=== PATIENT | female | born 1990 | race Hispanic/Latino ===

== ENCOUNTER 2016-05-22 23:09 | Inpatient (IN) | payer BC ==
[2016-05-22] MEDS ORDERED: Dextrose 50% SYRINGE Inj (50 ml) ONE (23:15)
[2016-05-22] MEDS ORDERED: Sodium Chloride 0.9% 1,000 ML IV ONE (23:21)
[2016-05-22] MEDS ORDERED: Naloxone 0.4 mg/ml Inj (Adult) IVP STA (23:21)
[2016-05-22] MEDS ORDERED: Dextrose 50% SYRINGE Inj (50 ml) IVP STA (23:22)
[2016-05-22] MEDS ORDERED: Sodium Chloride 0.9% 1,000 ML ONE (23:32)
[2016-05-22 23:37] LABS: BASO # 0.1 K/uL (0.0-0.2); BASO % 0.5 % (0.0-2.0); EOS # 0.1 K/uL (0.0-0.7); EOS % 0.7 % (0.0-4.0); HEMATOCRIT 38.5 % (34.0-47.0); LYMPH # 4.5 K/uL (1.0-4.3); MEAN CELL VOLUME 83.9 fL (81.0-99.0); MEAN CORPUSCULAR HGB CONC 33.4 g/dL (33.0-37.0); MONO # 0.8 K/uL (0.0-0.8); MONO % 7.5 % (0.0-10.0); NRBC % 0.1 % (0.0-2.0); WHITE BLOOD COUNT 10.3 K/uL (4.8-10.8)
[2016-05-22 23:49] LABS: CHLORIDE 98 mmol/L (98-107)
[2016-05-22 23:50] LABS: SODIUM 138 mmol/L (132-148)
[2016-05-22 23:50] LABS: RBC URINE < 1 /hpf (0-3); URINE BILIRUBIN NEGATIVE (NEGATIVE); URINE BLOOD NEGATIVE (NEGATIVE); URINE COLOR Colorless (YELLOW); URINE GLUCOSE (UA) 3+ mg/dL (Normal); URINE KETONE NEGATIVE (NEGATIVE); URINE LEUKOCYTE ESTERASE NEG Leu/uL (Negative); URINE PROTEIN NEGATIVE (NEGATIVE); URINE UROBILINOGEN NORMAL mg/dL (0.2-1.0); WBC URINE < 1 /hpf (0-5)
[2016-05-22 23:52] LABS: ALB/GLOB RATIO 1.3 (1.0-2.1); ALKALINE PHOSPHATASE 47 U/L (38-126); ALT/SGPT 26 U/L (9-52); AST/SGOT 28 U/L (14-36); BILIRUBIN,TOTAL 0.6 mg/dL (0.2-1.3); BLOOD UREA NITROGEN 5 mg/dL (7-17); CARBON DIOXIDE 24 mmol/L (22-30); GFR AFRICAN-AMERICAN > 60; GLUCOSE,RANDOM 87 mg/dL (65-105); TOTAL PROTEIN 7.6 g/dL (6.3-8.3)
[2016-05-22 23:53] LABS: ALCOHOL SERUM < 10 mg/dl (0-10); CALCIUM 8.9 mg/dl (8.6-10.4); MAGNESIUM 2.2 mg/dL (1.6-2.3)
[2016-05-23 00:52] LABS: ABG ALLEN TEST POS; ABG MECHANICAL RATE 14; ATERIAL BLOOD GAS PEEP 5; DRAW SITE RRAD
--- NOTE | 2016-05-23 01:04 | C.PDOC ---
History Of Present Illness Boyfriend called 911 because she took "a bunch of her pills". EMS found pt to be drowsy. Pt became more lethargic on the way to the hospital. Time Seen by Provider: 05/22/16 23:17 History Per: EMS History/Exam Limitations: clinical condition Onset/Duration Of Symptoms: Unknown (tonight) Current Symptoms Are (Timing): Still Present Suicide/Self Injury Attempted (Context): Ingestion Ingestion Of Substance: Xanax, Pristiq, Seroquel, Respirdal. Severity: Severe Additional History Per: Prior Records, Boyfriend Past Medical History Reviewed: Historical Data, Nursing Documentation, Vital Signs Vital Signs: Last Vital Signs Temp 97.5 F L 05/22/16 23:13 Pulse 70 05/23/16 01:00 Resp 16 05/23/16 01:00 BP 113/78 05/23/16 01:00 Pulse Ox 100 05/23/16 01:00 - Medical History PMH: Bipolar Disorder Family History: States: Unknown Family Hx - Social History Hx Alcohol Use: Yes Hx Substance Use: No Review Of Systems Review Of Systems: ROS cannot be obtained secondary to pt's inabilty to answer questions. Physical Exam - Physical Exam Appears: Other (slighly responsive only to deep painful stimuli) Skin: Normal Color, Warm, Dry Head: Atraumatic Eye(s): bilateral: PERRL Neck: Normal ROM, No Midline Cervical Tenderness, No Step Off Deformity, Supple Chest: Symmetrical Cardiovascular: Rhythm Regular Respiratory: Normal Breath Sounds, No Accessory Muscle Use, Other (Shallow breathing) Gastrointestinal/Abdominal: Soft, No Distention Extremity: Normal ROM, No Deformity Neurological/Psych: No Response To Commands Pain Response: Withdraws With Pain (mild) ED Course And Treatment - Laboratory Results Result Diagrams: 05/22/16 23:31 05/22/16 23:31 Lab Interpretation: No Acute Changes Urine POC: Negative ECG: Interpreted By Me, Viewed By Me ECG Rhythm: Sinus Rhythm, Nonspecific Changes ECG Interpretation: Abnormal Interpretation Of ECG: Prolonged QTc at 483ms. Rate From EC O2 Sat by Pulse Oximetry: 100 (On NRB) Pulse Ox Interpretation: Other - Radiology CXR: Interpreted by Me, Viewed By Me CXR Interpretation: Yes: Other (ETT and OGT in place) Progress Note: Pt was d/w Lucretia at [facility]. They recommend supportive care and repeating the EKG in 4 hours. - Physician Consult Information Physician Contacted: Venancio Blackman Outcome Of Conversation: He accepted pt to ICU. Endotracheal Intubation - Endotracheal Intubation Intubated With ETT Size: 7 (7.5) Blade Type Used: Curved Indication: Airway Protection Intubated: Orally Pre-Intubation Airway Assessment: Ventilated And Oxygenated Paralyzed With: Succinylcholine Post-Intubation Assessment: ETT Secured AT (cm): (21), Breath Sounds Equal Bilat , Placement Confirmed Via CXR, Color Change W/End Tidal CO2 Detector, Oxygen Saturation: (99) Progress - Interventions Interventions:: Observation, Intravenous fluid, Oxygen - Medications Administered Intravenous: Other (D50. Narcan. ) - Data Reviewed Data Reviewed: Lab, Diagnostic imaging, EKG, Old records - Patient Status Patient status: Unchanged, Critical - Critical Care Citical Care: Excluding Proc Time Critical Care Time: 60 minutes - Continuity of Care Discussed patient case with:: Family-HIPPA compliant, ED Nurse, On-call PMD-pt unassigned Discussed pt. case with php consultant/specialty: Pulmonary/Crit. Care - Patient Plan Patient Plan: Admission, ICU Disposition Discussed With DrNikole: Hitesh Cavazos Comment: He accepted pt on hospitalist service. Doctor Will See Patient In The: Hospital Counseled Patient/Family Regarding: Studies Performed, Diagnosis - Disposition Disposition: HOSPITALIZED Disposition Time: 01:10 Condition: CRITICAL - Clinical Impression Clinical Impression: Suicide attempt by substance overdose
--- NOTE | 2016-05-23 01:57 | CP.PCM.HP ---
History of Present Illness - History of Present Illness History of Present Illness: CC: AMS/Overdose HPI: Patient is a 26 year old female, with PMHx of Bipolar Disorder ( diagnosed 2009), presents to the [facility] ED via EMS for OD. Boyfriend of pt at bedside reports pt stated she was "not feeling well" and went to bed early. Boyfriend went into bedroom to check on pt 1/2 hour later and noted patient was lethargic and slurring her words. He also believed her to be be breathing "irregularly, and slowly." This caused him to call 911, and have pt brought to ED. Boyfriend also reports that patient had called her psychiatrist, Dr. Eitan Hawkins ([place]), and he directed her to "take her medication." Pt was unable to be maintain her airway, and was intubated on presentation. Family at bedside produced pills bottles for: Xanax, Pristiq, Seroquel, and Risperdal, but also state pt has recently been taking [place] as well. Family was unsure exactly her current regimen. Family reports history of questionable overdose on Zoloft in 2009 while pt was away at [facility] in [place]. Mother of pt states her daughter told her at the time she wanted to get better faster and took "all her Zoloft at once." It was during this admission in 2009, she was diagnosed with bipolar disorder. Family reports pt has been performing well at her job, but pt admitted to them stress over recent "long hours and moving in with her boyfriend." ROS unobtainable due to pt intubation. 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 Eitan Hawkins, [place] POA: Adopted parents (Copy available in chart) Present on Admission - Present on Admission Any Indicators Present on Admission: No Review of Systems - Review of Systems Systems not reviewed;Unavailable: Altered Mental Status, Intubated Review of Systems: ROS unobtainable due to pts condition Past Patient History - Past Social History Smoking Status: Never Smoked - GASTROINTESTINAL Hx Gastrointestinal Disorders: Yes Other/Comment: Hirschsprung disease - PSYCHIATRIC Hx Bipolar Disorder: Yes Hx Substance Use: No - SURGICAL HISTORY Hx Surgeries: Yes Other/Comment: GI surgery at infancy age. - ANESTHESIA Hx Anesthesia: Yes Meds Allergies/Adverse Reactions: Allergies Allergy/AdvReac Type Severity Reaction Status Date / Time Cephalosporins Allergy Verified 05/23/16 01:43 Penicillins Allergy Verified 05/23/16 01:43 Physical Exam - Constitutional Appears: In Acute Distress Additional comments: Intubated on mechanical ventilation - Head Exam Head Exam: ATRAUMATIC, NORMAL INSPECTION, NORMOCEPHALIC - Eye Exam Eye Exam: EOMI, PERRL. absent: Conjunctival injection, Scleral icterus - ENT Exam ENT Exam: Mucous Membranes Moist - Neck Exam Neck exam: Positive for: Normal Inspection - Respiratory Exam Respiratory Exam: Clear to Auscultation Bilateral. absent: Accessory Muscle Use Additional comments: Pt on mechanical respiration - Cardiovascular Exam Cardiovascular Exam: REGULAR RHYTHM, +S1, +S2 - GI/Abdominal Exam GI & Abdominal Exam: Normal Bowel Sounds, Soft. absent: Distended - Extremities Exam Extremities exam: Positive for: normal inspection. Negative for: pedal edema - Neurological Exam Neurological exam: Altered - Skin Skin Exam: Normal Color, Warm Results - Vital Signs Recent Vital Signs: Last Vital Signs Temp 97.5 F L 05/22/16 23:13 Pulse 70 05/23/16 01:00 Resp 16 05/23/16 01:00 BP 113/78 05/23/16 01:00 Pulse Ox 100 05/23/16 01:11 - Labs Result Diagrams: 05/22/16 23:31 05/22/16 23:31 Labs: Laboratory Results - last 24 hr 05/22/16 05/22/16 05/22/16 23:15 23:31 23:44 WBC 10.3 RBC 4.59 Hgb 12.9 Hct 38.5 MCV 83.9 MCH 28.0 MCHC 33.4 RDW 13.0 Plt Count 234 MPV 7.0 L Neut % (Auto) 47.3 L Lymph % (Auto) 44.0 H [place] % (Auto) 7.5 Eos % (Auto) 0.7 Baso % (Auto) 0.5 Neut # 4.9 Lymph # 4.5 H [place] # 0.8 Eos # 0.1 Baso # 0.1 Puncture Site pCO2 pO2 HCO3 ABG pH ABG Total CO2 ABG O2 Saturation ABG Base Excess Shorty Test ABG Potassium A-a O2 Difference Respiratory Index Glucose Lactate Mechanical Rate FiO2 Tidal Volume PEEP Sodium 138 Potassium 4.0 Chloride 98 Carbon Dioxide 24 Anion Gap 20 BUN 5 L Creatinine 0.7 Est GFR ( Amer) > 60 Est GFR (Non-Af Amer) > 60 POC Glucose (mg/dL) 75 Random Glucose 87 Calcium 8.9 Magnesium 2.2 Total Bilirubin 0.6 AST 28 ALT 26 Alkaline Phosphatase 47 Total Protein 7.6 Albumin 4.4 Globulin 3.3 Albumin/Globulin Ratio 1.3 Arterial Blood Potassium Urine Color Colorless Urine Clarity Clear Urine pH 8.0 Ur Specific [place] 1.000 L Urine Protein Negative Urine Glucose (UA) 3+ H Urine Ketones Negative Urine Blood Negative Urine Nitrate Negative Urine Bilirubin Negative Urine Urobilinogen Normal Ur Leukocyte Esterase Neg Urine WBC (Auto) < 1 Urine RBC (Auto) < 1 Urine HCG, Qual Negative Salicylates 3.9 Urine Opiates Screen Negative Urine Methadone Screen Negative Acetaminophen < 10.0 L Ur Barbiturates Screen Negative Ur Phencyclidine Scrn Negative Ur Amphetamines Screen Negative U Benzodiazepines Scrn Positive U Oth Cocaine Metabols Negative U Cannabinoids Screen Negative Alcohol, Quantitative < 10 05/23/16 00:49 WBC RBC Hgb Hct MCV MCH MCHC RDW Plt Count MPV Neut % (Auto) Lymph % (Auto) [place] % (Auto) Eos % (Auto) Baso % (Auto) Neut # Lymph # [place] # Eos # Baso # Puncture Site Rrad pCO2 35 pO2 276 H HCO3 26.1 ABG pH 7.46 H ABG Total CO2 26.0 ABG O2 Saturation 98.9 H ABG Base Excess 1.4 Shorty Test Pos ABG Potassium 3.3 L A-a O2 Difference 108.0 Respiratory Index 0.4 Glucose 87 Lactate 0.7 Mechanical Rate 14 FiO2 60.0 Tidal Volume 500 PEEP 5 Sodium 141.0 Potassium Chloride 113.0 H Carbon Dioxide Anion Gap BUN Creatinine Est GFR ( Amer) Est GFR (Non-Af Amer) POC Glucose (mg/dL) Random Glucose Calcium Magnesium Total Bilirubin AST ALT Alkaline Phosphatase Total Protein Albumin Globulin Albumin/Globulin Ratio Arterial Blood Potassium 3.3 L Urine Color Urine Clarity Urine pH Ur Specific [place] Urine Protein Urine Glucose (UA) Urine Ketones Urine Blood Urine Nitrate Urine Bilirubin Urine Urobilinogen Ur Leukocyte Esterase Urine WBC (Auto) Urine RBC (Auto) Urine HCG, Qual Salicylates Urine Opiates Screen Urine Methadone Screen Acetaminophen Ur Barbiturates Screen Ur Phencyclidine Scrn Ur Amphetamines Screen U Benzodiazepines Scrn U Oth Cocaine Metabols U Cannabinoids Screen Alcohol, Quantitative Assessment & Plan - Assessment and Plan (Free Text) Assessment: Substance Overdose Admit to ICU, all mgmt per ICU team Unknown motivation, but believed suicide attempt One prior questionable attempt in 2009 (Zoloft, 6 day inpatient stay in [place]) Took combination of Five possible medications: [place], Risperdal, Seroquel, Xanax, Pristiq ER Naloxone 1.2 mg IV given in ED D50 50ml IV given in ED Flumazenil 0.2 mg IV - caused slight, temporary increase in alertness IV hydration: D5/.5 NS w. 20 meq KCL @ 100 cc/hr EKG: NSR, elongated QTc f/u [place] level Consider Psych consult when pt extubated Acute respiratory failure Pt intubated in ED CXR: Hazy opacity at the lung bases, likely atelectasis. ETT with tip just above tracheal bifurcation. (see full report) Electrolyte abnormalities K+: 3.3 on ABG - D5/.5 NS w. 20 meq KCL @ 100 cc/hr Monitor electrolytes on AM labs Prophylaxis SCDs Protonix 40 mg IVP Daily Heparin 5000u SC Q8H D5/.5 NS w. 20 meq KCL @ 100 cc/hr
--- NOTE | 2016-05-23 02:17 | CP.CCUPN ---
CCU Subjective - Physician Review Subjective (Free Text): 05/23/16 02:36 The Patient was seen and examined at the bedside, Medical records reviewed, all clinical/lab/hemodynamic/radiographic data were reviewed and management issues were discussed and formulated, 26 Y/O F with PMHx of Bipolar Disorder (diagnosed 2009 when she was hospitalized when she was away for [facility] in [place]), who was found by her Boyfriend minimally responsive and slurring her words. so he called 911, he believes that she took "a bunch of her pills". EMS found patient to be drowsy. Pt became more lethargic on the way to the hospital Patient received IV Naloxone 1.2 mg and D50 50ml IV given in ED, was no improvement of mental status, she emergently intubated in the ER. Pt she was not feeling well and went to bed early, Early in the day, she spoke to her psychiatrist and put her on additional bill as per family. Family was unsure exactly her current regimen since it frequently changes but they brought empty/semiempty bottles of Xanax, Pristiq, Seroquel, and Risperdal Pt currently unresponsive, orally intubated Poison control was contacted in the ER Admitted to ICU for monitoring CCU Objective - Vital Signs / Intake & Output Vital Signs (Last 4 hours): Vital Signs Temp Pulse Resp BP Pulse Ox 05/23/16 01:59 97.9 F 70 14 120/64 100 05/23/16 01:11 100 - Physical Exam Physical Exam Limitations: Positive for: Altered Mental Status Head: Positive for: Atraumatic, Normocephalic. Negative for: Tenderness, Contusion Pupils: Positive for: PERRL. Negative for: Sluggish, Non-Reactive Extroacular Muscles: Positive for: EOMI. Negative for: Gaze Palsy, Entrapment Conjunctiva: Positive for: Normal. Negative for: Injected, Icteric Ears: Positive for: Normal. Negative for: Erythema Mouth: Positive for: Moist Mucous Membranes Pharnyx: Positive for: Normal Nose (Internal): Positive for: Normal Inspection Neck: Positive for: Normal Range of Motion, Trachea Midline. Negative for: Meningeal Signs, MIDLINE TENDERNESS, Paraspinal Tenderness, JVD, Lymphadenopathy , Bruit, Other Respiratory/Chest: Positive for: Clear to Auscultation, Good Air Exchange. Negative for: Respiratory Distress, Accessory Muscle Use, Wheezes, Rales, Retracting Cardiovascular: Positive for: Regular Rate and Rhythm, Normal S1, S2, Peripheal Pulses Present. Negative for: Murmurs, Irregular Rhythm, Tachycardic, Bradycardic Abdomen: Positive for: Normal Bowel Sounds. Negative for: Tenderness, Distention, Peritoneal Signs - Patient Studies Fingerstick Blood Sugar Results: 66 Review of Systems - Review of Systems Systems not reviewed;Unavailable: Intubated Critical Care Progress Note - Ventilator Checklist Head of Bed 30 Degrees: Yes Daily Sedation Vacation: Yes Daily Assessment of Readiness to Wean: Yes Daily Spontaneous Breathing Trial: Yes PUD Prophalyxis: Yes DVT Prophylaxis: Yes Oral Care with Chlorhexidine Gluconate {CHG}: Yes - Extremities/Vascular Does the Patient have a Central Venous Catheter?: No Does the Patient need a Central Venous Catheter?: No Assessment/Plan (1) Suicide attempt by substance overdose Current Visit: Yes Status: Acute Priority: High Comment: Admit to ICU, frequent neuro check Monitor lytes Serial EKG, check cQT interval IV HYDRATION Psych consult (2) Acute respiratory failure Current Visit: Yes Status: Acute Priority: High Comment: Intiubated in the ER for airway protection Wean to extubate when fully awake PULMONARY TIOLET GI/DVT PPX
[2016-05-23] MEDS ORDERED: Dextrose 5%/0.45% NS 1,000 ML IV SCH (02:45)
[2016-05-23] MEDS ORDERED: Potassium Chloride 20 MEQ in Dextrose 5%/0.45% NS 1,000 ML IV SCH (04:17)
[2016-05-23] MEDS ORDERED: Flumazenil 0.1 mg/ml Inj (5ml) IVP STA (04:18)
--- NOTE | 2016-05-23 09:08 | RAD ---
HISTORY: overdose/suicide attempt, s/p intubation. COMPARISON: No prior. FINDINGS: LUNGS: Hazy opacity in the lung bases likely atelectasis PLEURA: No significant pleural effusion identified, no pneumothorax apparent. CARDIOVASCULAR: Mildly increased cardial mediastinal silhouette. OSSEOUS STRUCTURES: No significant abnormalities. VISUALIZED UPPER ABDOMEN: Upper abdomen is suboptimally evaluated. OTHER FINDINGS: ETT with the distal tip just above the tracheal bifurcation. The feeding tube with the distal tip not seen however coursing below the level of the diaphragm. IMPRESSION: Hazy opacity at the lung bases likely atelectasis
--- NOTE | 2016-05-23 10:44 | CP.PCM.PN ---
Subjective - Date & Time of Evaluation Date of Evaluation: 05/23/16 Time of Evaluation: 10:30 - Subjective Subjective: [facility] is [facility], from what I understand this may be an overdose with benzodizapine as well as antidepressant medications. Bottles found for Xanax, Pristiq, Seroquel, and Risperdal. From talking to staff she has not opened her eyes or responded to stimuli at this time. When I came and examined the patient she was intubated and not on any sedation. She did not awake with name calling, did not respond to noxious stimuli such as sternal rub. Eye showed pupils that were very dilated and very slow with constriction with a bright light. The systolic BP is in the low 80s, possibly from benzodiazpines. Currently on IVF. Objective - Vital Signs/Intake and Output Vital Signs (last 24 hours): Temp Pulse Resp BP Pulse Ox 97.2 F L 84 14 95/63 L 100 05/23/16 07:30 05/23/16 10:00 05/23/16 10:00 05/23/16 10:00 05/23/16 10:00 Intake and Output: 05/23/16 05/23/16 06:59 18:59 Intake Total 500 400 Output Total 2000 360 Balance -1500 40 - Medications Medications: Current Medications Heparin Sodium (Porcine) (Heparin) 5,000 units SC Q8 [facility] Last Admin: 05/23/16 06:58 Dose: 5,000 units Potassium Chloride 20 meq/ (Dextrose/Sodium Chloride) 1,010 mls @ 100 mls/hr IV .Q10H6M [facility] Last Admin: 05/23/16 05:53 Dose: 100 mls/hr Pantoprazole Sodium (Protonix Inj) 40 mg IVP DAILY [facility] - Head Exam Additional comments: Currently intubated, not following commands, not responding to loud or noxious stimuli - Eye Exam Additional comments: VERY Dilated pupils bilaterally, sluggish AND minimal constriction when light is shined. - ENT Exam Additional comments: Currently intubated - Cardiovascular Exam Cardiovascular Exam: REGULAR RHYTHM - GI/Abdominal Exam GI & Abdominal Exam: Soft, Normal Bowel Sounds - Neurological Exam Neurological Exam: absent: Alert, Altered, Awake, Normal Gait, Oriented x3 - Skin Skin Exam: Pallor, Pallor, Warm Assessment and Plan - Assessment and Plan (Free Text) Assessment: Substance Overdose 05/23: Currently intubated and not on any sedation, non responsive to loud or noxious stimuli. Continue IVF and monitor LFTs, Will need neurology evaluation, ECG, pychiatry evaluation as well. Unknown motivation, but believed suicide attempt. One prior questionable attempt in 2009 (Zoloft, 6 day inpatient stay in [place]) Took combination of Five possible medications: [place], Risperdal, Seroquel, Xanax, Pristiq ER IV hydration: D5/.5 NS w. 20 meq KCL @ 100 cc/hr Acute respiratory failure 05/23: At some point when benzodiazipne and pyschiatry medication wear off then wean as tolerated. Pt intubated in ED CXR: Hazy opacity at the lung bases, likely atelectasis. ETT with tip just above tracheal bifurcation. (see full report) Electrolyte abnormalities K+: 3.3 on ABG - D5/.5 NS w. 20 meq KCL @ 100 cc/hr Monitor electrolytes on AM labs Prophylaxis SCDs Protonix 40 mg IVP Daily Heparin 5000u SC Q8H D5/.5 NS w. 20 meq KCL @ 100 cc/hr
[2016-05-23] MEDS: Sodium Chloride 0.9% 1,000 ML IV SCH ×2 (11:00→20:50)
[2016-05-23 15:49] LABS: ABG ALLEN TEST POS; ABG MECHANICAL RATE 14; ARTERIAL BLOOD HGB O2 SAT 97.3 % (95.0-98.0); ATERIAL BLOOD GAS PEEP 5; CARBOXYHEMOGLOBIN 0.9 % (0.5-1.5); DRAW SITE LRA; HHB 0.8 % (0.0-5.0)
[2016-05-24 05:38] LABS: ABG ALLEN TEST POS; ABG MECHANICAL RATE 12; ARTERIAL BLOOD HGB O2 SAT 96.9 % (95.0-98.0); ATERIAL BLOOD GAS PEEP 5; CARBOXYHEMOGLOBIN 0.9 % (0.5-1.5); DRAW SITE RR; METHEMOGLOBIN 1.1 % (0.0-3.0)
[2016-05-24 06:25] LABS: BASO # 0.1 K/uL (0.0-0.2); BASO % 0.6 % (0.0-2.0); EOS # 0.2 K/uL (0.0-0.7); EOS % 1.8 % (0.0-4.0); HEMATOCRIT 35.6 % (34.0-47.0); LYMPH # 1.5 K/uL (1.0-4.3); LYMPH % 15.2 % (20.0-40.0); MEAN CELL VOLUME 86.5 fL (81.0-99.0); MEAN CORPUSCULAR HEMOGLOBIN 28.5 pg (27.0-31.0); MEAN CORPUSCULAR HGB CONC 32.9 g/dL (33.0-37.0); MEAN PLATELET VOLUME 7.3 fL (7.2-11.7); MONO # 0.7 K/uL (0.0-0.8); MONO % 6.8 % (0.0-10.0); WHITE BLOOD COUNT 9.9 K/uL (4.8-10.8)
[2016-05-24 06:29] LABS: CHLORIDE 110 mmol/L (98-107)
[2016-05-24 06:30] LABS: POTASSIUM 4.1 mmol/L (3.6-5.2); SODIUM 142 mmol/L (132-148)
[2016-05-24 06:32] LABS: ALKALINE PHOSPHATASE 44 U/L (38-126); AST/SGOT 22 U/L (14-36); BILIRUBIN,TOTAL 0.4 mg/dL (0.2-1.3); CARBON DIOXIDE 22 mmol/L (22-30); GFR AFRICAN-AMERICAN > 60; TOTAL PROTEIN 6.3 g/dL (6.3-8.3)
[2016-05-24 06:33] LABS: ALT/SGPT 35 U/L (9-52); BLOOD UREA NITROGEN 5 mg/dL (7-17); CALCIUM 7.9 mg/dl (8.6-10.4); GLUCOSE,RANDOM 89 mg/dL (65-105); PHOSPHOROUS 2.7 mg/dL (2.5-4.5)
[2016-05-24] MEDS: Dextrose 5%/0.9% NS 1,000 ML IV SCH ×2 (08:15)
[2016-05-24] MEDS ORDERED: Albuterol-Ipratrop 3 mg / 0.5 (3 ml) UD INH STA (10:33)
--- NOTE | 2016-05-24 10:38 | RAD ---
HISTORY: intubated COMPARISON: 05/23/2026 FINDINGS: LUNGS: New opacity at medial right lung base. Possible developing pneumonia. . PLEURA: No significant pleural effusion identified, no pneumothorax apparent. CARDIOVASCULAR: ETT and NG tube unchanged in position. OSSEOUS STRUCTURES: No significant abnormalities. VISUALIZED UPPER ABDOMEN: Normal. OTHER FINDINGS: None. IMPRESSION: Developing opacity at medial right lung base. Followup advised. ET tube and NG tube unchanged.
--- NOTE | 2016-05-24 10:39 | RAD ---
HISTORY: intubated COMPARISON: 05/23/2016 at 12:11 a.m. FINDINGS: LUNGS: No active pulmonary disease. PLEURA: No significant pleural effusion identified, no pneumothorax apparent. CARDIOVASCULAR: ET tube and NG tube noted. ET tube tip approximately 1.8 cm above the tracheal norma. . OSSEOUS STRUCTURES: No significant abnormalities. VISUALIZED UPPER ABDOMEN: Normal. OTHER FINDINGS: None. IMPRESSION: ET tube and NG tube in appropriate position. No pulmonary infiltrate.
[2016-05-24] MEDS: Enoxaparin 40 mg Syringe SC SCH (10:52)
--- NOTE | 2016-05-24 12:58 | CP.PCM.PN ---
Subjective - Date & Time of Evaluation Date of Evaluation: 05/24/16 Time of Evaluation: 12:00 - Subjective Subjective: Patient was seen and examined. She was extubated earlier this morning. She was awake, alert, and almost completely orientated but confused at times. Patient was able to tell me that she did infact try to overdose, she reported she "wanted to end it all" and she somehow took at least 30 tablets of Geodon and then close to 90 tablets of 0.5 of Xanax. It is not clear to her or her parents how she aquired so many tablets such as these. Her affect is very slow, speech is also slow, she follows commands and is answering questions. Family members explain that a similar episode occurred in 2009 at that time with Zoloft. Family members were very concerned since they reported the patient seemed completely well to them just last week. They explain that the patient is normally a fully functional adult with a job and house and this is a very sudden change. They explain she see's a Dr Hawkins, her psychiatrist. Objective - Vital Signs/Intake and Output Vital Signs (last 24 hours): Temp Pulse Resp BP Pulse Ox 98.2 F 107 H 18 116/67 97 05/24/16 12:00 05/24/16 12:07 05/24/16 12:07 05/24/16 12:07 05/24/16 12:07 Intake and Output: 05/24/16 05/24/16 06:59 18:59 Intake Total 1690 780 Output Total 1440 1250 Balance 250 -470 - Medications Medications: Current Medications Enoxaparin Sodium (Lovenox) 40 mg SC DAILY [facility] Last Admin: 05/24/16 10:52 Dose: 40 mg Dextrose/Sodium Chloride (Dextrose 5%/0.9% Ns 1000 Ml) 1,000 mls @ 125 mls/hr IV .Q8H [facility] Last Admin: 05/24/16 08:15 Dose: 125 mls/hr Pantoprazole Sodium (Protonix Inj) 40 mg IVP DAILY [facility] Last Admin: 05/24/16 10:52 Dose: 40 mg - Labs Labs: 05/24/16 06:11 05/24/16 06:15 - Constitutional Appears: No Acute Distress, Confused, Chronically Ill - Head Exam Head Exam: NORMAL INSPECTION - Eye Exam Eye Exam: EOMI Additional comments: Still has very dialted pupils, slow, sluggish constriction - ENT Exam ENT Exam: Mucous Membranes Moist - Respiratory Exam Respiratory Exam: Clear to Ausculation Bilateral, NORMAL BREATHING PATTERN - Cardiovascular Exam Cardiovascular Exam: REGULAR RHYTHM - GI/Abdominal Exam GI & Abdominal Exam: Soft, Normal Bowel Sounds. absent: Guarding, Rigid, Tenderness - Neurological Exam Neurological Exam: Alert, Altered, Awake, CN II-XII Intact. absent: Oriented x3 Neuro motor strength exam: Left Upper Extremity: 5, Right Upper Extremity: 5 - Psychiatric Exam Psychiatric exam: Depressed, Flat Affect - Skin Skin Exam: Pallor, Pallor, Warm Assessment and Plan - Assessment and Plan (Free Text) Assessment: Assessment: Substance Overdose - intentional 05/24: Patient now extubated. She reported, with her family members present that she wanted to end it all with taking at least 30 tablets of Geodon and also close to 90 tablets of 0.5mg Xanax 05/23: Currently intubated and not on any sedation, non responsive to loud or noxious stimuli. Continue IVF and monitor LFTs, Will need neurology evaluation, ECG, pychiatry evaluation as well. Unknown motivation, but believed suicide attempt. One prior questionable attempt in 2009 (Zoloft, 6 day inpatient stay in [place]) Took combination of Five possible medications: Vina, Risperdal, Seroquel, Xanax, Pristiq ER IV hydration: D5/.5 NS w. 20 meq KCL @ 100 cc/hr Acute respiratory failure 05/24: Patient is now extubated this morning. Respiration ok. 05/23: At some point when benzodiazipne and pyschiatry medication wear off then wean as tolerated. Pt intubated in ED CXR: Hazy opacity at the lung bases, likely atelectasis. ETT with tip just above tracheal bifurcation. (see full report) Electrolyte abnormalities K+: 3.3 on ABG - D5/.5 NS w. 20 meq KCL @ 100 cc/hr Monitor electrolytes on AM labs Prophylaxis SCDs Protonix 40 mg IVP Daily Heparin 5000u SC Q8H D5/.5 NS w. 20 meq KCL @ 100 cc/hr
--- NOTE | 2016-05-24 14:13 | CP.CCUPN ---
CCU Subjective - Physician Review Events Since Last Encounter (Free Text): 05/24/16 14:09 alert and oriented today, will extubate. CCU Objective - Vital Signs / Intake & Output Vital Signs (Last 4 hours): Vital Signs Temp Pulse Resp BP Pulse Ox 05/24/16 12:07 107 H 18 116/67 97 05/24/16 12:00 98.2 F 110 H 16 98 05/24/16 11:30 113 H 14 97 05/24/16 11:06 118 H 15 119/62 95 05/24/16 11:00 118 H 13 98 05/24/16 10:30 98 H 19 98 Intake and Output (Last 8hrs): Intake & Output 05/23/16 05/24/16 05/24/16 22:59 06:59 14:59 Intake Total 860 1205 780 Output Total 380 1300 1250 Balance 480 -95 -470 Weight 182 lb Intake: Intake, IV Amount 800 975 750 Right Hand 800 975 750 Oral 0 Tube Feeding 60 230 30 Output: Urine 380 1300 1250 Urethral (Lopez) 380 1300 1250 Stool 0 - Physical Exam Head: Positive for: Atraumatic, Normocephalic. Negative for: Tenderness, Contusion Pupils: Positive for: PERRL. Negative for: Sluggish, Non-Reactive Extroacular Muscles: Positive for: EOMI. Negative for: Gaze Palsy, Entrapment Conjunctiva: Positive for: Normal. Negative for: Injected, Icteric Ears: Positive for: Normal. Negative for: Erythema Mouth: Positive for: Moist Mucous Membranes Pharnyx: Positive for: Normal Nose (Internal): Positive for: Normal Inspection Neck: Positive for: Normal Range of Motion, Trachea Midline. Negative for: Meningeal Signs, MIDLINE TENDERNESS, Paraspinal Tenderness, JVD, Lymphadenopathy , Bruit, Other Respiratory/Chest: Positive for: Clear to Auscultation, Good Air Exchange. Negative for: Respiratory Distress, Accessory Muscle Use, Wheezes, Rales, Retracting Cardiovascular: Positive for: Regular Rate and Rhythm, Normal S1, S2, Peripheal Pulses Present. Negative for: Murmurs, Irregular Rhythm, Tachycardic, Bradycardic Abdomen: Positive for: Normal Bowel Sounds. Negative for: Tenderness, Distention, Peritoneal Signs Neurological: Positive for: GCS=15, CN II-XII Intact, Speech Normal Psychiatric: Positive for: Alert - Medications Active Medications: Active Medications Generic Name Dose Route Start Last Admin Trade Name Colby PRN Reason Stop Dose Admin Enoxaparin Sodium 40 mg 05/24/16 10:00 05/24/16 10:52 Lovenox SC 40 mg DAILY ELVI Administration Dextrose/Sodium Chloride 1,000 mls @ 125 mls/hr 05/23/16 23:45 05/24/16 08:15 Dextrose 5%/0.9% Ns 1000 Ml IV 125 mls/hr .Q8H ELVI Administration Pantoprazole Sodium 40 mg 05/23/16 10:00 05/24/16 10:52 Protonix Inj IVP 40 mg DAILY ELVI Administration - Patient Studies Lab Studies: Microbiology Studies 05/23/16 02:32 MRSA Culture (Admit) - Final Nose MRSA NOT DETECTED Lab Studies 05/24/16 05/24/16 05/24/16 Range/Units 06:15 06:11 05:18 WBC 9.9 (4.8-10.8) K/uL RBC 4.11 (3.80-5.20) Mil/uL Hgb 11.7 (11.0-16.0) g/dL Hct 35.6 (34.0-47.0) % MCV 86.5 D (81.0-99.0) fL MCH 28.5 (27.0-31.0) pg MCHC 32.9 L (33.0-37.0) g/dL RDW 14.0 (11.5-14.5) % Plt Count 169 (130-400) K/uL MPV 7.3 (7.2-11.7) fL Neut % (Auto) 75.6 H (50.0-75.0) % Lymph % (Auto) 15.2 L (20.0-40.0) % [place] % (Auto) 6.8 (0.0-10.0) % Eos % (Auto) 1.8 (0.0-4.0) % Baso % (Auto) 0.6 (0.0-2.0) % Neut # 7.5 H (1.8-7.0) K/uL Lymph # 1.5 (1.0-4.3) K/uL [place] # 0.7 (0.0-0.8) K/uL Eos # 0.2 (0.0-0.7) K/uL Baso # 0.1 (0.0-0.2) K/uL Puncture Site pCO2 (35-45) mm/Hg pO2 (80-100) mm/Hg HCO3 (21-28) mmol/L ABG pH (7.35-7.45) ABG Total CO2 (22-28) mmol/L ABG O2 Saturation (95-98) % ABG Base Excess (-2.0-3.0) mmol/L ABG Hemoglobin (11.7-17.4) g/dL ABG Carboxyhemoglobin (0.5-1.5) % POC ABG HHb (Measured) (0.0-5.0) % ABG Methemoglobin (0.0-3.0) % Shorty Test A-a O2 Difference mm/Hg Respiratory Index Hgb O2 Saturation (95.0-98.0) % Mechanical Rate FiO2 % Tidal Volume PEEP Sodium 142 (132-148) mmol/L Potassium 4.1 (3.6-5.2) mmol/L Chloride 110 H (98-107) mmol/L Carbon Dioxide 22 (22-30) mmol/L Anion Gap 14 (10-20) BUN 5 L (7-17) mg/dL Creatinine 1.0 (0.7-1.2) MG/DL Est GFR ( Amer) > 60 Est GFR (Non-Af Amer) > 60 POC Glucose (mg/dL) 99 (65-110) mg/dL Random Glucose 89 (65-105) mg/dL Calcium 7.9 L (8.6-10.4) mg/dl Phosphorus 2.7 (2.5-4.5) mg/dL Magnesium 2.0 (1.6-2.3) mg/dL Total Bilirubin 0.4 (0.2-1.3) mg/dL AST 22 (14-36) U/L ALT 35 (9-52) U/L Alkaline Phosphatase 44 (38-126) U/L Total Protein 6.3 (6.3-8.3) g/dL Albumin 3.2 L D (3.5-5.0) g/dL Globulin 3.1 (2.2-3.9) gm/dL Albumin/Globulin Ratio 1.0 (1.0-2.1) [place] 0.3 L (0.6-1.2) mmol/L 05/24/16 05/24/16 05/23/16 Range/Units 05:05 01:07 23:39 WBC (4.8-10.8) K/uL RBC (3.80-5.20) Mil/uL Hgb (11.0-16.0) g/dL Hct (34.0-47.0) % MCV (81.0-99.0) fL MCH (27.0-31.0) pg MCHC (33.0-37.0) g/dL RDW (11.5-14.5) % Plt Count (130-400) K/uL MPV (7.2-11.7) fL Neut % (Auto) (50.0-75.0) % Lymph % (Auto) (20.0-40.0) % [place] % (Auto) (0.0-10.0) % Eos % (Auto) (0.0-4.0) % Baso % (Auto) (0.0-2.0) % Neut # (1.8-7.0) K/uL Lymph # (1.0-4.3) K/uL [place] # (0.0-0.8) K/uL Eos # (0.0-0.7) K/uL Baso # (0.0-0.2) K/uL Puncture Site Rr pCO2 39 (35-45) mm/Hg pO2 157 H (80-100) mm/Hg HCO3 22.4 (21-28) mmol/L ABG pH 7.36 (7.35-7.45) ABG Total CO2 23.2 (22-28) mmol/L ABG O2 Saturation 99.0 H (95-98) % ABG Base Excess -3.2 L (-2.0-3.0) mmol/L ABG Hemoglobin 11.7 (11.7-17.4) g/dL ABG Carboxyhemoglobin 0.9 (0.5-1.5) % POC ABG HHb (Measured) 1.0 (0.0-5.0) % ABG Methemoglobin 1.1 (0.0-3.0) % Shorty Test Pos A-a O2 Difference 44.0 mm/Hg Respiratory Index 0.3 Hgb O2 Saturation 96.9 (95.0-98.0) % Mechanical Rate 12 FiO2 35.0 % Tidal Volume 400 PEEP 5 Sodium (132-148) mmol/L Potassium (3.6-5.2) mmol/L Chloride (98-107) mmol/L Carbon Dioxide (22-30) mmol/L Anion Gap (10-20) BUN (7-17) mg/dL Creatinine (0.7-1.2) MG/DL Est GFR ( Amer) Est GFR (Non-Af Amer) POC Glucose (mg/dL) 108 69 (65-110) mg/dL Random Glucose (65-105) mg/dL Calcium (8.6-10.4) mg/dl Phosphorus (2.5-4.5) mg/dL Magnesium (1.6-2.3) mg/dL Total Bilirubin (0.2-1.3) mg/dL AST (14-36) U/L ALT (9-52) U/L Alkaline Phosphatase (38-126) U/L Total Protein (6.3-8.3) g/dL Albumin (3.5-5.0) g/dL Globulin (2.2-3.9) gm/dL Albumin/Globulin Ratio (1.0-2.1) [place] (0.6-1.2) mmol/L 05/23/16 Range/Units 15:45 WBC (4.8-10.8) K/uL RBC (3.80-5.20) Mil/uL Hgb (11.0-16.0) g/dL Hct (34.0-47.0) % MCV (81.0-99.0) fL MCH (27.0-31.0) pg MCHC (33.0-37.0) g/dL RDW (11.5-14.5) % Plt Count (130-400) K/uL MPV (7.2-11.7) fL Neut % (Auto) (50.0-75.0) % Lymph % (Auto) (20.0-40.0) % [place] % (Auto) (0.0-10.0) % Eos % (Auto) (0.0-4.0) % Baso % (Auto) (0.0-2.0) % Neut # (1.8-7.0) K/uL Lymph # (1.0-4.3) K/uL [place] # (0.0-0.8) K/uL Eos # (0.0-0.7) K/uL Baso # (0.0-0.2) K/uL Puncture Site Lra pCO2 31 L (35-45) mm/Hg pO2 214 H (80-100) mm/Hg HCO3 20.8 L (21-28) mmol/L ABG pH 7.39 (7.35-7.45) ABG Total CO2 19.8 L (22-28) mmol/L ABG O2 Saturation 99.2 H (95-98) % ABG Base Excess -5.3 L (-2.0-3.0) mmol/L ABG Hemoglobin 11.0 L (11.7-17.4) g/dL ABG Carboxyhemoglobin 0.9 (0.5-1.5) % POC ABG HHb (Measured) 0.8 (0.0-5.0) % ABG Methemoglobin 1.0 (0.0-3.0) % Shorty Test Pos A-a O2 Difference 32.0 mm/Hg Respiratory Index 0.1 Hgb O2 Saturation 97.3 (95.0-98.0) % Mechanical Rate 14 FiO2 40.0 % Tidal Volume 400 PEEP 5 Sodium (132-148) mmol/L Potassium (3.6-5.2) mmol/L Chloride (98-107) mmol/L Carbon Dioxide (22-30) mmol/L Anion Gap (10-20) BUN (7-17) mg/dL Creatinine (0.7-1.2) MG/DL Est GFR ( Amer) Est GFR (Non-Af Amer) POC Glucose (mg/dL) (65-110) mg/dL Random Glucose (65-105) mg/dL Calcium (8.6-10.4) mg/dl Phosphorus (2.5-4.5) mg/dL Magnesium (1.6-2.3) mg/dL Total Bilirubin (0.2-1.3) mg/dL AST (14-36) U/L ALT (9-52) U/L Alkaline Phosphatase (38-126) U/L Total Protein (6.3-8.3) g/dL Albumin (3.5-5.0) g/dL Globulin (2.2-3.9) gm/dL Albumin/Globulin Ratio (1.0-2.1) [place] (0.6-1.2) mmol/L Laboratory Results - last 24 hr 05/23/16 05/23/16 05/24/16 15:45 23:39 01:07 WBC RBC Hgb Hct MCV MCH MCHC RDW Plt Count MPV Neut % (Auto) Lymph % (Auto) [place] % (Auto) Eos % (Auto) Baso % (Auto) Neut # Lymph # [place] # Eos # Baso # Puncture Site Lra pCO2 31 L pO2 214 H HCO3 20.8 L ABG pH 7.39 ABG Total CO2 19.8 L ABG O2 Saturation 99.2 H ABG Base Excess -5.3 L ABG Hemoglobin 11.0 L ABG Carboxyhemoglobin 0.9 POC ABG HHb (Measured) 0.8 ABG Methemoglobin 1.0 Shorty Test Pos A-a O2 Difference 32.0 Respiratory Index 0.1 Hgb O2 Saturation 97.3 Mechanical Rate 14 FiO2 40.0 Tidal Volume 400 PEEP 5 Sodium Potassium Chloride Carbon Dioxide Anion Gap BUN Creatinine Est GFR ( Amer) Est GFR (Non-Af Amer) POC Glucose (mg/dL) 69 108 Random Glucose Calcium Phosphorus Magnesium Total Bilirubin AST ALT Alkaline Phosphatase Total Protein Albumin Globulin Albumin/Globulin Ratio [place] 05/24/16 05/24/16 05/24/16 05:05 05:18 06:11 WBC 9.9 RBC 4.11 Hgb 11.7 Hct 35.6 MCV 86.5 D MCH 28.5 MCHC 32.9 L RDW 14.0 Plt Count 169 MPV 7.3 Neut % (Auto) 75.6 H Lymph % (Auto) 15.2 L [place] % (Auto) 6.8 Eos % (Auto) 1.8 Baso % (Auto) 0.6 Neut # 7.5 H Lymph # 1.5 [place] # 0.7 Eos # 0.2 Baso # 0.1 Puncture Site Rr pCO2 39 pO2 157 H HCO3 22.4 ABG pH 7.36 ABG Total CO2 23.2 ABG O2 Saturation 99.0 H ABG Base Excess -3.2 L ABG Hemoglobin 11.7 ABG Carboxyhemoglobin 0.9 POC ABG HHb (Measured) 1.0 ABG Methemoglobin 1.1 Shorty Test Pos A-a O2 Difference 44.0 Respiratory Index 0.3 Hgb O2 Saturation 96.9 Mechanical Rate 12 FiO2 35.0 Tidal Volume 400 PEEP 5 Sodium Potassium Chloride Carbon Dioxide Anion Gap BUN Creatinine Est GFR ( Amer) Est GFR (Non-Af Amer) POC Glucose (mg/dL) 99 Random Glucose Calcium Phosphorus Magnesium Total Bilirubin AST ALT Alkaline Phosphatase Total Protein Albumin Globulin Albumin/Globulin Ratio [place] 05/24/16 06:15 WBC RBC Hgb Hct MCV MCH MCHC RDW Plt Count MPV Neut % (Auto) Lymph % (Auto) [place] % (Auto) Eos % (Auto) Baso % (Auto) Neut # Lymph # [place] # Eos # Baso # Puncture Site pCO2 pO2 HCO3 ABG pH ABG Total CO2 ABG O2 Saturation ABG Base Excess ABG Hemoglobin ABG Carboxyhemoglobin POC ABG HHb (Measured) ABG Methemoglobin Shorty Test A-a O2 Difference Respiratory Index Hgb O2 Saturation Mechanical Rate FiO2 Tidal Volume PEEP Sodium 142 Potassium 4.1 Chloride 110 H Carbon Dioxide 22 Anion Gap 14 BUN 5 L Creatinine 1.0 Est GFR ( Amer) > 60 Est GFR (Non-Af Amer) > 60 POC Glucose (mg/dL) Random Glucose 89 Calcium 7.9 L Phosphorus 2.7 Magnesium 2.0 Total Bilirubin 0.4 AST 22 ALT 35 Alkaline Phosphatase 44 Total Protein 6.3 Albumin 3.2 L D Globulin 3.1 Albumin/Globulin Ratio 1.0 [place] 0.3 L Fingerstick Blood Sugar Results: 66 Review of Systems - Review of Systems Systems not reviewed;Unavailable: Intubated Assessment/Plan (1) Acute respiratory failure Assessment and plan: 26 Y/O F with PMHx of Bipolar Disorder (diagnosed 2009 when she was hospitalized when she was away for college in [place]), who was found by her Boyfriend minimally responsive and slurring her words. so he called 911, he believes that she took "a bunch of her pills". EMS found patient to be drowsy. Pt became more lethargic on the way to the hospital. Patient received IV Naloxone 1.2 mg and D50 50ml IV given in ED, was no improvement of mental status , she was emergently intubated in the ER. Neuro: alert and oriented. Psych: will need psych consult to r/o suicide attempt, patient states this was accidental not intentional. Pulm: Acute respiratory failure secondary to drug overdose, on PRVC. Will extubate today. CV: Hemodynamically stable. QT prolongation which is improving on its own. Hem: No acute issues Renal: Maintenance fluids NS@75ml/hr Endo: No acute issues GI: Nothing by mouth. ID: No acute issues, monitor for signs of aspiration pneumonia. DVT proph - Lovenox GI proph - Protonix lopez for strict I/O's during acute illness Code status - full code Crtical Care Time spent 35 minutes Multi-disciplinary rounds were performed with house staff, nursing, speech therapy, respiratory therapy, pharmacy and nutrition with integrated input from the primary team/attending and other consulting services. The documented time is cumulative and includes review of patient data/exams/labs/chart review and examination of the patient on rounds and throughout the day; time is exclusive of any procedures or teaching time. Current Visit: Yes Status: Acute Priority: High Comment: Intiubated in the ER for airway protection Wean to extubate when fully awake PULMONARY TIOLET GI/DVT PPX
[2016-05-24] MEDS ORDERED: Dextrose 5%/0.9% NS 1,000 ML IV SCH (14:15)
--- NOTE | 2016-05-24 14:49 | CARD ---
APPROVED REPORT EKG Measurement Heart [id number] <Conclusion> Normal sinus rhythm Prolonged QT Abnormal ECG
--- NOTE | 2016-05-24 17:35 | PCM.PYCHPN ---
Psychiatric Progress Note - Psychiatric Progress Note Patient seen today, length of contact: 20 minutes Patient Chief Complaint: my throat hurts (pt had been intubated) Problems Identified/Issues Discussed: Pt overdosed with multiple meds and over 130 tabs, At that time pt wanted to . pt will need to be admitted to a psychiatric facility when medically cleared Pt has agreed to go on a voluntary basis. Pt in my clinical opinion still warrants a 1:1` level of supervision
[2016-05-25 06:25] LABS: BASO # 0.1 K/uL (0.0-0.2); BASO % 0.7 % (0.0-2.0); EOS # 0.2 K/uL (0.0-0.7); EOS % 2.2 % (0.0-4.0); HEMATOCRIT 37.9 % (34.0-47.0); LYMPH # 2.4 K/uL (1.0-4.3); LYMPH % 23.1 % (20.0-40.0); MEAN CELL VOLUME 84.2 fL (81.0-99.0); MEAN CORPUSCULAR HEMOGLOBIN 28.2 pg (27.0-31.0); MEAN CORPUSCULAR HGB CONC 33.4 g/dL (33.0-37.0); MEAN PLATELET VOLUME 7.4 fL (7.2-11.7); MONO # 0.8 K/uL (0.0-0.8); MONO % 8.1 % (0.0-10.0); RED CELL DISTRIBUTION WIDTH 13.3 % (11.5-14.5); WHITE BLOOD COUNT 10.2 K/uL (4.8-10.8)
[2016-05-25 06:35] LABS: CHLORIDE 102 mmol/L (98-107); POTASSIUM 4.1 mmol/L (3.6-5.2); SODIUM 138 mmol/L (132-148)
[2016-05-25 06:37] LABS: BILIRUBIN,TOTAL 0.5 mg/dL (0.2-1.3); GFR AFRICAN-AMERICAN > 60
[2016-05-25 06:38] LABS: ALB/GLOB RATIO 1.1 (1.0-2.1); ALKALINE PHOSPHATASE 58 U/L (38-126); ALT/SGPT 35 U/L (9-52); AST/SGOT 23 U/L (14-36); BLOOD UREA NITROGEN 5 mg/dL (7-17); CARBON DIOXIDE 24 mmol/L (22-30); GLUCOSE,RANDOM 87 mg/dL (65-105); PHOSPHOROUS 3.9 mg/dL (2.5-4.5); TOTAL PROTEIN 7.3 g/dL (6.3-8.3)
[2016-05-25 06:39] LABS: CALCIUM 8.9 mg/dl (8.6-10.4); MAGNESIUM 2.2 mg/dL (1.6-2.3)
[2016-05-25] MEDS: Enoxaparin 40 mg Syringe SC SCH (11:19)
--- NOTE | 2016-05-25 11:31 | PCM.PYCHPN ---
Psychiatric Progress Note - Psychiatric Progress Note Patient seen today, length of contact: 20 minutes Patient Chief Complaint: i am willing to go voluntarily to a psych hospital Problems Identified/Issues Discussed: pt is medically cleared and i willing to go to a psych hospital voluntarily pt is concerned about cost of the hospitalization Medical Problems: s/p intentional overdose Diagnostic Results: reviewed DSM 5 Symptoms Update: pt wants to live and learn more about her bipolar disorder and how to manage her illness Medication Change: No Medical Record Reviewed: Yes Mental Status Examination - Cognitive Function Orientation: Place, Situation, Time Memory: Intact Attention: WNL Concentration: WNL Association: WNL Fund of Knowledge: WNL - Mood Mood: Depressed, Anxious - Affect Affect: Blunted, Depressed - Speech Speech: Appropriate - Formal Thought Process Formal Thought Process: No Impairment - Suicidal Ideation Suicidal Ideation: No - Homicidal Ideation Homicidal Ideation: No Goal/Treatment Plan - Goal/Treatment Plan Need for Continued Stay: Remain at risks for inpatient hospitalization, Severe depression anxiety Progress Toward Problem(s) and Goals/Treatment Plan: pt has been medically cleared and is willing to go voluntarily to a psych unit - Smoking Cessation Smoking Cessation Initiated: No
--- NOTE | 2016-05-25 11:43 | PCM.PSYCH ---
Initial Psychiatric Evaluation - Initial Psychiatric Evaluation Type of Admission: Voluntary Legal Status: Capacity Chief Complaint (in patient's own words): when i took the pills i wanted to . Patient's Reaction to Hospitalization: i am glad i did not History of Present Illness and Precipitating Events: PT IS A 26 YEAR OLD WHITE SINGLE FEMALE WHO LIVES WITH HER BOYFRIEND. PT IS DIAGNOSED WITH BIPOLAR DISORDER, PT TOLD HER BOYFRIEND SHE WAS TIRED AND WANTED TO SLEEP. THE PT TOOK30 GEODON TABS, 90 XANAX 4 LITHIUM AND 17 SEROQUEL PILLS. HER BOY FRIEND WENT IN TO CHECK ON HER. SHE WAS LETHARGIC AND WAS BREATHING VERY SLOWLY. THE BOY FRIEND CALLED 911. AFTER EMS ARRIVED, PT WAS INTUBATED TO PROTECT THE AIRWAY. PT HAS STATED AT THE TIME SHE TOOK THE OVERDOSE SHE WANTED TO , PT HAS NO LEGAL, OR SUBSTANCE ABUSE HISTORY. PT WAS ADOPTED AT 5 WEEKS OF AGE. PT HAS [place]ANG ONCE BEFORE WHILE ATTENDING THE [facility]. 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 Current Medications: Active Medications Generic Name Dose Route Start Last Admin Trade Name Freq PRN Reason Stop Dose Admin Enoxaparin Sodium 40 mg 05/24/16 10:00 05/25/16 11:19 Lovenox SC 40 mg DAILY ELVI Administration Dextrose/Sodium Chloride 1,000 mls @ 75 mls/hr 05/24/16 14:15 05/24/16 14:26 Dextrose 5%/0.9% Ns 1000 Ml IV Not Given .[id number] ELVI Pantoprazole Sodium 40 mg 05/23/16 10:00 05/25/16 10:25 Protonix Inj IVP 40 mg DAILY ELVI Administration Past Psychiatric History - Past Psychiatric History Prior Psychiatric Treatment: SEE HISTORY OF PRESENT ILLNESS Explanation of prior treatment: s/p intentional overdose Pertinent Medical Hx (Current Medical&Sleep Prob, Allergies): Allergies Allergy/AdvReac Type Severity Reaction Status Date / Time Cephalosporins Allergy Verified 05/23/16 01:43 Penicillins Allergy Verified 05/23/16 01:43 ALPRAZolam 05/22/16 Acetaminophen 05/22/16 Pristiq 05/22/16 Risperdal 05/22/16 SEROquel 05/22/16 Review of Systems - Review of Systems Systems not reviewed;Unavailable: Altered Mental Status - Constitutional Constitutional: Malaise - EENT Eyes: UNREMARKABLE Ears: UNREMARKABLE Nose/Mouth/Throat: Sore Throat - Breasts Breasts: UNREMARKABLE - Cardiovascular Cardiovascular: UNREMARKABLE - Respiratory Respiratory: UNREMARKABLE - Gastrointestinal Gastrointestinal: UNREMARKABLE - Genitourinary Genitourinary: UNREMARKABLE - Reproductive: Female Reproductive:Female: UNREMARKABLE - Menstruation Menstruation: UNREMARKABLE - Musculoskeletal Musculoskeletal: UNREMARKABLE - Integumentary Integumentary: UNREMARKABLE - Neurological Neurological: UNREMARKABLE - Psychiatric Psychiatric: Anhedonia, Anxiety, Depression, Difficulty Concentrating, Irritability, Mood Swings, Suicidal Ideation - Endocrine Endocrine: UNREMARKABLE - Hematologic/Lymphatic Hematologic: UNREMARKABLE Mental Status Examination - Personal Presentation Personal Presentation: Looks younger than stated age - Affect Affect: Constricted, Depressed - Motor Activity Motor Activity: Calm - Reliability in Providing Information Reliability in Providing Information: Good - Speech Speech: Organized - Mood Mood: Depressed, Anxious - Formal Thought Process Formal Thought Process: No Impairment - Cognitive Functions Orientation: Person, Place, Situation, Time Sensorium: Alert Abstract Thinking: As evidence by abstract perception of proverbs Estimate of Intelligence: Above Average Judgement: Intact, as evidence by: Insight regarding need for hospitalization Memory: Recent intact, as evidence by: Ability to recall events of the day, Remote intact, as evidenced by: Abilit to recall sig. life events - Risk Risk: Suicidal - Strength & Assets Inventory Strength & Assets Inventory: Intelligence, Family support, Education, Employment history, Skills - Limitations Limitations: Other Additional comments: FUTURE ATTEMPT TO HARM SELF DSM 5 DX - Recommended/Plan of Treatment Treatment Recommendations and Plan of Treatment: INTENTIONAL OVERDOSE BIPOLAR DISORDER INTENTIONAL OVERDOSE S PER PROTOCOL IN ICU 1:1 SUPERVISION BIPOLAR DISORDER AT THIS NTIME NO PSYCHOTROPIC MEDS Projected ELOS: UNCLEAR Prognosis: GOOD Discharge Plan and Discharge Criteria: WHEN MEDICALLY CLEARED TRANSFER TO A PSYCHIATRIC FACILITY OR UNIT - Smoking Cessation Smoking Cessation Initiated: No
--- NOTE | 2016-05-25 12:11 | CP.PCM.PN ---
Subjective - Date & Time of Evaluation Date of Evaluation: 05/25/16 Time of Evaluation: 11:45 - Subjective Subjective: Patient was awake and alert - her mental status was much faster today, she answered all question correctly. At some point the patient is going to a voluntary psychiatry unit in the future. In the mean time will be moved out of ICU to medical floor. Will still need 1 to 1. LFTs are ok and BP and HR stable. Objective - Vital Signs/Intake and Output Vital Signs (last 24 hours): Temp Pulse Resp BP Pulse Ox 96.7 F L 83 16 120/75 95 05/25/16 05:00 05/25/16 07:06 05/25/16 07:06 05/25/16 07:06 05/25/16 07:06 Intake and Output: 05/25/16 05/25/16 06:59 18:59 Intake Total 295 0 Output Total 900 0 Balance -605 0 - Medications Medications: Current Medications Enoxaparin Sodium (Lovenox) 40 mg SC DAILY ON LICENSE OF [facility] Last Admin: 05/25/16 11:19 Dose: 40 mg Dextrose/Sodium Chloride (Dextrose 5%/0.9% Ns 1000 Ml) 1,000 mls @ 75 mls/hr IV .[id number] ON LICENSE OF [facility] Last Admin: 05/24/16 14:26 Dose: Not Given Pantoprazole Sodium (Protonix Inj) 40 mg IVP DAILY ON LICENSE OF [facility] Last Admin: 05/25/16 10:25 Dose: 40 mg - Labs Labs: 05/25/16 06:18 05/25/16 06:18 - Constitutional Appears: Well, No Acute Distress - Head Exam Head Exam: NORMAL INSPECTION, NORMOCEPHALIC - Eye Exam Eye Exam: EOMI, Normal appearance, PERRL Pupil Exam: PERRL Additional comments: TODAY pupils were much faster response to light - ENT Exam ENT Exam: Mucous Membranes Moist - Respiratory Exam Respiratory Exam: Clear to Ausculation Bilateral, NORMAL BREATHING PATTERN - Cardiovascular Exam Cardiovascular Exam: REGULAR RHYTHM - GI/Abdominal Exam GI & Abdominal Exam: Normal Bowel Sounds. absent: Guarding, Rigid, Soft, Tenderness - Neurological Exam Neurological Exam: Alert, Awake, CN II-XII Intact, Oriented x3 Neuro motor strength exam: Left Upper Extremity: 5, Right Upper Extremity: 5 - Psychiatric Exam Psychiatric exam: Normal Affect, Normal Mood Additional comments: She started to cry as we talked longer - Skin Skin Exam: Pallor, Warm Assessment and Plan - Assessment and Plan (Free Text) Assessment: Substance Overdose - intentional 05/25: Mental status is now very good, answering questions and history very well. Plan is to move to the patient to a voluntary psychiatry unit. The patient in the mean time will be moved to the medical floor for the time being. 05/24: Patient now extubated. She reported, with her family members present that she wanted to end it all with taking at least 30 tablets of Geodon and also close to 90 tablets of 0.5mg Xanax 05/23: Currently intubated and not on any sedation, non responsive to loud or noxious stimuli. Continue IVF and monitor LFTs, Will need neurology evaluation, ECG, pychiatry evaluation as well. Unknown motivation, but believed suicide attempt. One prior questionable attempt in 2009 (Zoloft, 6 day inpatient stay in [place]) Took combination of Five possible medications: [place], Risperdal, Seroquel, Xanax, Pristiq ER IV hydration: D5/.5 NS w. 20 meq KCL @ 100 cc/hr Acute respiratory failure 05/24: Patient is now extubated this morning. Respiration ok. 05/23: At some point when benzodiazipne and pyschiatry medication wear off then wean as tolerated. Pt intubated in ED CXR: Hazy opacity at the lung bases, likely atelectasis. ETT with tip just above tracheal bifurcation. (see full report) Electrolyte abnormalities 05/25: Currently stable, LFT stable. Monitor electrolytes on AM labs Prophylaxis SCDs Protonix 40 mg IVP Daily Heparin 5000u SC Q8H D5/.5 NS w. 20 meq KCL @ 100 cc/hr
[2016-05-26] MEDS: Enoxaparin 40 mg Syringe SC SCH (09:07)
[2016-05-26 12:53] VITALS: O2SAT 97
--- NOTE | 2016-05-26 17:09 | CP.PCM.PN ---
<Leonor Jones - Last Filed: 05/26/16 17:10> Subjective - Date & Time of Evaluation Date of Evaluation: 05/26/16 Time of Evaluation: 09:15 - Subjective Subjective: Internal medicine progress note for Dr. Christiane Jones, PGY-1 Pt S & E at bedside. Pt reports a few episodes of nb, bilious, food stuff emesis overnight with associated nausea. Reports constipation (chronic), some problems with insomnia. Denies current N//V/F/C, SOB, CP, abdominal pain, other complaints. Is generally anxious. Objective - Vital Signs/Intake and Output Vital Signs (last 24 hours): Temp Pulse Resp BP Pulse Ox 97.6 F 79 16 118/73 97 05/26/16 16:00 05/26/16 16:00 05/26/16 16:00 05/26/16 16:00 05/26/16 16:00 Intake and Output: 05/26/16 05/26/16 06:59 18:59 Intake Total 960 600 Output Total 300 Balance 960 300 - Medications Medications: Current Medications Docusate Sodium (Colace) 100 mg PO DAILY [facility] Last Admin: 05/26/16 10:38 Dose: 100 mg Enoxaparin Sodium (Lovenox) 40 mg SC DAILY [facility] Last Admin: 05/26/16 09:07 Dose: 40 mg Ibuprofen (Motrin Tab) 400 mg PO Q8H PRN PRN Reason: Headache Last Admin: 05/26/16 16:37 Dose: 400 mg Ondansetron HCl (Zofran Inj) 4 mg IVP Q6H PRN PRN Reason: for nausea Last Admin: 05/26/16 09:06 Dose: 4 mg Pantoprazole Sodium (Protonix Ec Tab) 40 mg PO DAILY [facility] - Labs Labs: 05/25/16 06:18 05/25/16 06:18 - Constitutional Appears: Non-toxic, No Acute Distress - Head Exam Head Exam: ATRAUMATIC, NORMAL INSPECTION, NORMOCEPHALIC - Eye Exam Eye Exam: EOMI, Normal appearance, PERRL Pupil Exam: NORMAL ACCOMODATION, PERRL - ENT Exam ENT Exam: Mucous Membranes Moist, Normal Exam - Neck Exam Neck Exam: Full ROM, Normal Inspection - Respiratory Exam Respiratory Exam: Clear to Ausculation Bilateral, NORMAL BREATHING PATTERN. absent: Rales, Rhonchi, Wheezes - Cardiovascular Exam Cardiovascular Exam: REGULAR RHYTHM, +S1, +S2 - GI/Abdominal Exam GI & Abdominal Exam: Soft, Normal Bowel Sounds. absent: Tenderness - Extremities Exam Extremities Exam: Full ROM, Normal Inspection. absent: Pedal Edema, Tenderness - Back Exam Back Exam: Full ROM, NORMAL INSPECTION. absent: tenderness - Neurological Exam Neurological Exam: Alert, Awake, CN II-XII Intact, Oriented x3 - Psychiatric Exam Psychiatric exam: Normal Affect, Normal Mood - Skin Skin Exam: Dry, Intact, Normal Color, Warm Assessment and Plan - Assessment and Plan (Free Text) Assessment: Substance Overdose - intentional 05/26: No issues overnight 05/25: Mental status is now very good, answering questions and history very well. Plan is to move to the patient to a voluntary psychiatry unit. The patient in the mean time will be moved to the medical floor for the time being. 05/24: Patient now extubated. She reported, with her family members present that she wanted to end it all with taking at least 30 tablets of Geodon and also close to 90 tablets of 0.5mg Xanax 05/23: Currently intubated and not on any sedation, non responsive to loud or noxious stimuli. Continue IVF and monitor LFTs, Will need neurology evaluation, ECG, pychiatry evaluation as well. Unknown motivation, but believed suicide attempt. One prior questionable attempt in 2009 (Zoloft, 6 day inpatient stay in [place]) Took combination of Five possible medications: [place], Risperdal, Seroquel, Xanax, Pristiq ER IV hydration: D5/.5 NS w. 20 meq KCL @ 100 cc/hr Acute respiratory failure 05/26: stable on room air 05/24: Patient is now extubated this morning. Respiration ok. 05/23: At some point when benzodiazipne and pyschiatry medication wear off then wean as tolerated. Pt intubated in ED CXR: Hazy opacity at the lung bases, likely atelectasis. ETT with tip just above tracheal bifurcation. (see full report) Electrolyte abnormalities 05/25: Currently stable, LFT stable. Monitor electrolytes on AM labs Prophylaxis SCDs Protonix 40 mg IVP Daily Heparin 5000u SC Q8H D5/.5 NS w. 20 meq KCL @ 100 cc/hr Dispo SW working on placement at [facility] vs. alternative in patient psych unit Medically cleared for transfer when bed available DW attending. <Jakob Butler - Last Filed: 05/27/16 15:31> Objective - Vital Signs/Intake and Output Vital Signs (last 24 hours): Temp Pulse Resp BP Pulse Ox 97.8 F 77 17 108/68 97 05/26/16 20:00 05/26/16 20:00 05/26/16 20:00 05/26/16 20:00 05/26/16 16:00 - Labs Labs: 05/25/16 06:18 05/25/16 06:18 Attending/Attestation - Attestation I have personally seen and examined this patient.: Yes I have fully participated in the care of the patient.: Yes I have reviewed all pertinent clinical information, including history, physical exam and plan: Yes Notes (Text): 05/27/16 15:29 Patient was seen and examined at bedside with the resident Patient appears comfortable with no acute distress Discharge planning in progresspatient is to be transferred to a psych unit. Activity above history and physical and assessment/plan by the resident.
--- NOTE | 2016-05-26 18:56 | CP.PCM.DIS ---
Provider - Provider Date of Admission: 05/23/16 01:11 Attending physician: Hitesh Cavazos MD Primary care physician: None Consults: Psych Critical care Time Spent in preparation of Discharge (in minutes): 60 Hospital Course - Lab Results Lab Results: Micro Results 05/23/16 02:32 Nose MRSA Culture (Admit) - Final MRSA NOT DETECTED Most Recent Lab Values WBC 10.2 K/uL (4.8-10.8) 05/25/16 06:18 RBC 4.50 Mil/uL (3.80-5.20) 05/25/16 06:18 Hgb 12.7 g/dL (11.0-16.0) 05/25/16 06:18 Hct 37.9 % (34.0-47.0) 05/25/16 06:18 MCV 84.2 fL (81.0-99.0) D 05/25/16 06:18 MCH 28.2 pg (27.0-31.0) 05/25/16 06:18 MCHC 33.4 g/dL (33.0-37.0) 05/25/16 06:18 RDW 13.3 % (11.5-14.5) 05/25/16 06:18 Plt Count 180 K/uL (130-400) 05/25/16 06:18 MPV 7.4 fL (7.2-11.7) 05/25/16 06:18 Neut % (Auto) 65.9 % (50.0-75.0) 05/25/16 06:18 Lymph % (Auto) 23.1 % (20.0-40.0) 05/25/16 06:18 [place] % (Auto) 8.1 % (0.0-10.0) 05/25/16 06:18 Eos % (Auto) 2.2 % (0.0-4.0) 05/25/16 06:18 Baso % (Auto) 0.7 % (0.0-2.0) 05/25/16 06:18 Neut # 6.7 K/uL (1.8-7.0) 05/25/16 06:18 Lymph # 2.4 K/uL (1.0-4.3) 05/25/16 06:18 [place] # 0.8 K/uL (0.0-0.8) 05/25/16 06:18 Eos # 0.2 K/uL (0.0-0.7) 05/25/16 06:18 Baso # 0.1 K/uL (0.0-0.2) 05/25/16 06:18 Puncture Site Rr 05/24/16 05:05 pCO2 39 mm/Hg (35-45) 05/24/16 05:05 pO2 157 mm/Hg (80-100) H 05/24/16 05:05 HCO3 22.4 mmol/L (21-28) 05/24/16 05:05 ABG pH 7.36 (7.35-7.45) 05/24/16 05:05 ABG Total CO2 23.2 mmol/L (22-28) 05/24/16 05:05 ABG O2 Saturation 99.0 % (95-98) H 05/24/16 05:05 ABG Base Excess -3.2 mmol/L (-2.0-3.0) L 05/24/16 05:05 ABG Hemoglobin 11.7 g/dL (11.7-17.4) 05/24/16 05:05 ABG Carboxyhemoglobin 0.9 % (0.5-1.5) 05/24/16 05:05 POC ABG HHb (Measured) 1.0 % (0.0-5.0) 05/24/16 05:05 ABG Methemoglobin 1.1 % (0.0-3.0) 05/24/16 05:05 Shorty Test Pos 05/24/16 05:05 ABG Potassium 3.3 mmol/L (3.6-5.2) L 05/23/16 00:49 A-a O2 Difference 44.0 mm/Hg 05/24/16 05:05 Respiratory Index 0.3 05/24/16 05:05 Hgb O2 Saturation 96.9 % (95.0-98.0) 05/24/16 05:05 Sodium 141.0 mmol/l (132-148) 05/23/16 00:49 Chloride 113.0 mmol/L (98-107) H 05/23/16 00:49 Glucose 87 mg/dl (65-105) 05/23/16 00:49 Lactate 0.7 mmol/L (0.7-2.1) 05/23/16 00:49 Mechanical Rate 12 05/24/16 05:05 FiO2 35.0 % 05/24/16 05:05 Tidal Volume 400 05/24/16 05:05 PEEP 5 05/24/16 05:05 Sodium 138 mmol/L (132-148) 05/25/16 06:18 Potassium 4.1 mmol/L (3.6-5.2) 05/25/16 06:18 Chloride 102 mmol/L (98-107) 05/25/16 06:18 Carbon Dioxide 24 mmol/L (22-30) 05/25/16 06:18 Anion Gap 16 (10-20) 05/25/16 06:18 BUN 5 mg/dL (7-17) L 05/25/16 06:18 Creatinine 0.8 MG/DL (0.7-1.2) 05/25/16 06:18 Est GFR ( Amer) > 60 05/25/16 06:18 Est GFR (Non-Af Amer) > 60 05/25/16 06:18 POC Glucose (mg/dL) 104 mg/dL (65-110) 05/25/16 12:02 Random Glucose 87 mg/dL (65-105) 05/25/16 06:18 Calcium 8.9 mg/dl (8.6-10.4) 05/25/16 06:18 Phosphorus 3.9 mg/dL (2.5-4.5) 05/25/16 06:18 Magnesium 2.2 mg/dL (1.6-2.3) 05/25/16 06:18 Total Bilirubin 0.5 mg/dL (0.2-1.3) 05/25/16 06:18 AST 23 U/L (14-36) 05/25/16 06:18 ALT 35 U/L (9-52) 05/25/16 06:18 Alkaline Phosphatase 58 U/L (38-126) 05/25/16 06:18 Total Protein 7.3 g/dL (6.3-8.3) 05/25/16 06:18 Albumin 3.8 g/dL (3.5-5.0) 05/25/16 06:18 Globulin 3.5 gm/dL (2.2-3.9) 05/25/16 06:18 Albumin/Globulin Ratio 1.1 (1.0-2.1) 05/25/16 06:18 Arterial Blood Potassium 3.3 mmol/L (3.6-5.2) L 05/23/16 00:49 Urine Color Colorless (YELLOW) 05/22/16 23:44 Urine Clarity Clear (Clear) 05/22/16 23:44 Urine pH 8.0 (5.0-8.0) 05/22/16 23:44 Ur Specific [place] 1.000 (1.003-1.030) L 05/22/16 23:44 Urine Protein Negative mg/dL (NEGATIVE) 05/22/16 23:44 Urine Glucose (UA) 3+ mg/dL (Normal) H 05/22/16 23:44 Urine Ketones Negative mg/dL (NEGATIVE) 05/22/16 23:44 Urine Blood Negative (NEGATIVE) 05/22/16 23:44 Urine Nitrate Negative (NEGATIVE) 05/22/16 23:44 Urine Bilirubin Negative (NEGATIVE) 05/22/16 23:44 Urine Urobilinogen Normal mg/dL (0.2-1.0) 05/22/16 23:44 Ur Leukocyte Esterase Neg Krystina/uL (Negative) 05/22/16 23:44 Urine WBC (Auto) < 1 /hpf (0-5) 05/22/16 23:44 Urine RBC (Auto) < 1 /hpf (0-3) 05/22/16 23:44 Urine HCG, Qual Negative (NEGATIVE) 05/22/16 23:44 Salicylates 3.9 mg/dL 1 05/22/16 23:31 Urine Opiates Screen Negative (NEGATIVE) 05/22/16 23:44 Urine Methadone Screen Negative (NEGATIVE) 05/22/16 23:44 Acetaminophen < 10.0 ug/mL (10.0-30.0) L 05/22/16 23:31 Ur Barbiturates Screen Negative (NEGATIVE) 05/22/16 23:44 Ur Phencyclidine Scrn Negative (NEGATIVE) 05/22/16 23:44 Ur Amphetamines Screen Negative (NEGATIVE) 05/22/16 23:44 U Benzodiazepines Scrn Positive (NEGATIVE) 05/22/16 23:44 [place] 0.3 mmol/L (0.6-1.2) L 03/25/17 06:15 U Oth Cocaine Metabols Negative (NEGATIVE) 05/22/16 23:44 U Cannabinoids Screen Negative (NEGATIVE) 05/22/16 23:44 Alcohol, Quantitative < 10 mg/dl (0-10) 05/22/16 23:31 - Hospital Course Hospital Course: Patient is a 26 year old female, with PMHx of Bipolar Disorder ( diagnosed 2009), presents to the [facility] ED via EMS for OD. Boyfriend of pt at bedside reports pt stated she was "not feeling well" and went to bed early. Boyfriend went into bedroom to check on pt 1/2 hour later and noted patient was lethargic and slurring her words. He also believed her to be be breathing "irregularly, and slowly." This caused him to call 911, and have pt brought to ED. Boyfriend also reports that patient had called her psychiatrist, Dr. Eitan Hawkins ([place]), and he directed her to "take her medication." Pt was unable to be maintain her airway, and was intubated on presentation. Family at bedside produced pills bottles for: Xanax, Pristiq, Seroquel, and Risperdal, but also state pt has recently been taking [place] as well. Family was unsure exactly her current regimen. Family reports history of questionable overdose on Zoloft in 2009 while pt was away at [facility] in [place]. Mother of pt states her daughter told her at the time she wanted to get better faster and took "all her Zoloft at once." It was during this admission in 2009, she was diagnosed with bipolar disorder. Family reports pt has been performing well at her job, but pt admitted to them stress over recent "long hours and moving in with her boyfriend." ROS unobtainable due to pt intubation. Pt admitted to ICU- intubated for respiratory failure after drug overdose, monitored in ICU. Pt extubated on hospital day2, pt admitted to attempted suicide via drug overdose. Pt placed on 1:1 supervision. Psychiatry saw/ evaluated pt w/recommendation for transfer to psychiatric facility/unit after medical clearance. Pt was stabilized medically, ready for transfer to psych unit/facility- expressed desire to go to [facility] as per pt. Social work contracted regarding setting up transfer. Pt stable, cleared for transfer to [facility]. Diagnoses: bipolar d/o, intentional drug overdose, suicide attempt, s/p acute respiratory failure Please see EMR for full record of hospitalization. - Date & Time of H&P Date of H&P: 05/23/16 Time of H&P: 01:55 Discharge Exam - Head Exam Head Exam: ATRAUMATIC, NORMAL INSPECTION, NORMOCEPHALIC - Eye Exam Eye Exam: EOMI, Normal appearance, PERRL Pupil Exam: NORMAL ACCOMODATION, PERRL - ENT Exam ENT Exam: Mucous Membranes Moist, Normal Exam - Neck Exam Neck exam: Full Rom, Normal Inspection - Respiratory Exam Respiratory Exam: Clear to PA & Lateral, NORMAL BREATHING PATTERN, UNREMARKABLE. absent: Rales, Rhonchi, Wheezes, Respiratory Distress - Cardiovascular Exam Cardiovascular Exam: REGULAR RHYTHM, +S1, +S2 - GI/Abdominal Exam GI & Abdominal Exam: Normal Bowel Sounds, Soft, Unremarkable. absent: Tenderness - Extremities Exam Extremities exam: full ROM, normal inspection - Back Exam Back exam: FULL ROM, NORMAL INSPECTION - Neurological Exam Neurological exam: Alert, CN II-XII Intact, Oriented x3 - Psychiatric Exam Psychiatric exam: Normal Affect, Normal Mood - Skin Skin Exam: Dry, Intact, Normal Color, Warm Discharge Plan - Follow Up Plan Condition: CRITICAL Disposition: DISCHARGE TO PSYCH HOSPITAL Additional Instructions: none; pt up ad beatrice
[2016-05-26 20:31] VITALS: BP 108/68; PULSE 77; RESP 17; TEMP 97.8
[2016-05-27] MEDS ORDERED: Pantoprazole 40 mg EC Tab PO SCH (10:00)
== END 2016-05-26 20:30 | DRG 917 ==
LOC: C.ER 23:09 → C.9I 05-23 01:11
PROVIDERS: ADMIT Internal Medicine; ATTEND Internal Medicine
PROC: 5A1935Z Respiratory Ventilation, Less than 24 Consecutive Hours (ICD-10-PCS; principal; 2016-05-23)
PROC: 0BH17EZ Insertion of Endotracheal Airway into Trachea, Via Natural or Artificial Opening (ICD-10-PCS; 2016-05-23)
DX: T43.592A Poisoning by other antipsychotics and neuroleptics, intentional self-harm, initial encounter (principal); J96.00 Acute respiratory failure, unspecified whether with hypoxia or hypercapnia; J98.11 Atelectasis; F31.9 Bipolar disorder, unspecified; T42.4X2A Poisoning by benzodiazepines, intentional self-harm, initial encounter; Y92.039 Unspecified place in apartment as the place of occurrence of the external cause; G47.00 Insomnia, unspecified; K59.00 Constipation, unspecified; Z91.5 Personal history of self-harm; E87.8 Other disorders of electrolyte and fluid balance, not elsewhere classified

== ENCOUNTER 2017-07-06 14:01 | Emergency (ER) | payer BC, OTHER ==
--- NOTE | 2017-07-06 16:07 | C.PDOC ---
History Of Present Illness 27 y/o female presents to the ER complaining of having trouble sleeping at night. Patient is requesting Seroquel to help her sleep at night. Patient states that she is delusional at times. Currently, she denies being delusional , having SI and HI. Time Seen by Provider: 07/06/17 15:29 Chief Complaint (Nursing): Psychiatric Evaluation History Per: Patient History/Exam Limitations: no limitations Onset/Duration Of Symptoms: Days Current Symptoms Are (Timing): Still Present Severity: Moderate Past Medical History Reviewed: Historical Data, Nursing Documentation, Vital Signs Vital Signs: Last Vital Signs Temp 98.2 F 07/06/17 16:30 Pulse 100 H 07/06/17 16:30 Resp 20 07/06/17 16:30 BP 133/90 07/06/17 16:30 Pulse Ox 98 07/06/17 18:32 - Medical History PMH: Bipolar Disorder Other Surgeries: Hx of surgeries - [facility] Procedures INSERTION OF ENDOTRACHEAL AIRWAY INTO TRACHEA, VIA OPENING (05/23/16) RESPIRATORY VENTILATION, LESS THAN 24 CONSECUTIVE HOURS (05/23/16) Family History: States: No Known Family Hx - Social History Hx Alcohol Use: Yes Hx Substance Use: No - Immunization History Hx Influenza Vaccination: No Review Of Systems Except As Marked, All Systems Reviewed And Found Negative. Constitutional: Negative for: Fever, Chills Physical Exam - Physical Exam Appears: Non-toxic, No Acute Distress, Other (obese, white female) Skin: Normal Color, Warm, Dry Head: Atraumatic, Normacephalic Eye(s): bilateral: Normal Inspection Nose: Normal Oral Mucosa: Moist Neck: Supple Chest: Symmetrical Cardiovascular: Rhythm Regular Respiratory: Normal Breath Sounds Gastrointestinal/Abdominal: Normal Exam, No Tenderness Neurological/Psych: Oriented x3, Normal Speech, Other (appears to cry on command ) ED Course And Treatment - Laboratory Results Result Diagrams: 07/06/17 16:05 07/06/17 16:05 O2 Sat by Pulse Oximetry: 98 (RA) Pulse Ox Interpretation: Normal Progress Note: Labs ordered. Medical Decision Making Medical Decision Making: bipolar with ? gilda vs schizo no SI/HI Contacted Psychiatrist to arrange for pt to get Seroquel Rx from him as ED will not write emergency psych prescriptions. Disposition Doctor Will See Patient In The: Office Counseled Patient/Family Regarding: Studies Performed, Diagnosis - Disposition Referrals: [facility] [Outside] [facility] [Outside] [facility] [Outside] [facility] [Outside] Disposition: HOME/ ROUTINE Disposition Time: 16:08 Condition: GOOD Additional Instructions: follow-up with your psychiatrist for new prescriptions of psychiatric meds. Follow up with our outpatient psych services as needed Forms: [employer] (Tajik) - Clinical Impression Clinical Impression: Bipolar 1 disorder with moderate gilda - Scribe Statement The provider has reviewed the documentation as recorded by the Simeon Guzmán Provider Attestation: All medical record entries made by the Simeon were at my direction and personally dictated by me. I have reviewed the chart and agree that the record accurately reflects my personal performance of the history, physical exam, medical decision making, and the department course for this patient. I have also personally directed, reviewed, and agree with the discharge instructions and disposition.
[2017-07-06 16:11] LABS: BASO # 0.1 K/uL (0.0-0.2); BASO % 0.9 % (0.0-2.0); EOS # 0.1 K/uL (0.0-0.7); HCG,QUALITATIVE URINE NEGATIVE (NEGATIVE); HEMOGLOBIN 15.4 g/dL (11.0-16.0); LYMPH # 3.8 K/uL (1.0-4.3); LYMPH % 26.9 % (20.0-40.0); MEAN CELL VOLUME 84.1 fL (81.0-99.0); MEAN CORPUSCULAR HGB CONC 34.5 g/dL (33.0-37.0); MEAN PLATELET VOLUME 6.3 fL (7.2-11.7); MONO # 0.7 K/uL (0.0-0.8); NEUT # 9.4 K/uL (1.8-7.0); NEUT % 66.2 % (50.0-75.0); NRBC % 0.1 % (0.0-2.0); RBC 5.31 Mil/uL (3.80-5.20); RED CELL DISTRIBUTION WIDTH 13.3 % (11.5-14.5); WHITE BLOOD COUNT 14.2 K/uL (4.8-10.8)
[2017-07-06 16:15] LABS: SQUAMOUS EPITHIAL 11 /hpf (0-5); URINE BACTERIA FEW (<OCC); URINE BILIRUBIN NEGATIVE (NEGATIVE); URINE BLOOD NEGATIVE (NEGATIVE); URINE CLARITY Hazy (Clear); URINE COLOR Yellow (YELLOW); URINE GLUCOSE (UA) NORMAL (Normal); URINE LEUKOCYTE ESTERASE NEG Leu/uL (Negative); URINE PROTEIN NEGATIVE (NEGATIVE); URINE UROBILINOGEN NORMAL mg/dL (0.2-1.0)
[2017-07-06 16:27] LABS: ALB/GLOB RATIO 1.2 (1.0-2.1); ALBUMIN 4.6 g/dL (3.5-5.0); ALT/SGPT 37 U/L (9-52); AST/SGOT 27 U/L (14-36); BLOOD UREA NITROGEN 12 mg/dL (7-17); CALCIUM 9.4 mg/dl (8.6-10.4); GFR AFRICAN-AMERICAN > 60; GFR NON-AFRICAN AMERICAN > 60
[2017-07-06 16:31] LABS: BARBITURATES, UR NEGATIVE (NEGATIVE); BENZODIAZEPINES, UR NEGATIVE (NEGATIVE); OPIATES, UR NEGATIVE (NEGATIVE); PHENCYCLIDINE, UR NEGATIVE (NEGATIVE)
[2017-07-06 16:46] VITALS: BP 133/90; PULSE 100; RESP 20; TEMP 98.2
[2017-07-06 18:28] VITALS: O2SAT 98
== END 2017-07-06 16:47 | disposition home or self-care (01) ==
LOC: C.ER 14:01
DX: F31.12 Bipolar disorder, current episode manic without psychotic features, moderate (principal)